=== PATIENT | male | born 1990 ===

== ENCOUNTER → 2018-10-30 06:46 | Outpatient (CLI) | payer OTHER, SELFPAY ==
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
== END ==
PROVIDERS: Visit Provider Internal Medicine
DX: M50.11 Cervical disc disorder with radiculopathy, high cervical region (principal)
CPT/HCPCS: 72156

== ENCOUNTER → 2019-09-27 14:32 | Outpatient (ROUT) | payer OTHER, SELFPAY ==
[2019-09-29 19:38] LABS: COVID19 Sendout Not Detected (Not Detected)
== END ==
PROVIDERS: Visit Provider Internal Medicine
DX: B34.9 Viral infection, unspecified (principal); R05 Cough
CPT/HCPCS: 87635